=== PATIENT | male | born 1930 | race Caucasian/White ===

== ENCOUNTER 2016-07-12 13:44 | Inpatient (IN) | payer MEDICARE, OTHER ==
--- NOTE | ~2016-07-12 | DS ---
Discharge Summary [facility] [address] [facility] [place]. [address] NAME: STEFFI ARGUETA : 32 STATUS : DIS IN PAT#: [id number] AGE: 85 ADM/REG DATE : 07/12/16 MR#: [id number] REPORT SERV DATE: 07/18/16 DICTATED BY: CARIDAD PHILLIPS DATE: 07/17/16 REPORT STATUS : Draft TRANSCRIBED BY: MODL DATE: 07/17/16 ADMISSION DATE: 07/12/2016 DISCHARGE DATE: 07/17/2016 The patient is an 85-year-old male with a history of hypertension, hyperlipidemia, CVA, who presented to the hospital with a complaint of fever, weakness, dysuria, and cough for three days. For further details please refer to H and P dictated by Dr. Alyce Moy on 07/13/2016. HOSPITAL COURSE: Upon presentation to the hospital the patient was admitted under Hospitalist Service due to the concern of aspiration pneumonia. The patient was placed n.p.o. and a swallow evaluation was done. Pending swallow evaluation the patient was empirically started on IV antibiotics for management of pneumonia. The patient did get a swallow eval which was positive for aspiration. The patient was evaluated by Speech and Swallow, the study was positive for aspiration prompting a modified barium swallow. Status post modified barium swallow eval recommendations were for the patient to be placed on soft mechanical diet. For his pneumonia it was most likely consistent with hospital-acquired aspiration pneumonia. The patient was managed on IV antibiotics with gradual improvement in his symptoms. The patient progressively improved during his hospital course. Given his requirement of oxygen on presentation the patient was evaluated for home O2 requirement; however, the patient did meet criteria for home O2. He has remained hemodynamically stable with resolution of his fever. The patient is now hemodynamically stable. His antibiotics will be transitioned to p.o. as the patient is tolerating p.o. mechanical soft diet. Given resolution of symptoms and completion of workup, the patient will be discharged home. Plan has been discussed with the patient, who voices understanding and is agreeable with this plan. DISCHARGE PHYSICAL EXAMINATION: VITAL SIGNS: Blood pressure 136/75, pulse of 68, respirations 17, and O2 saturation 95% on 3 L nasal cannula. GENERAL: The patient lying in bed, in no acute distress. Speaking in full sentences. HEENT: Normocephalic and atraumatic. Extraocular motors intact. Oral mucosa is moist. Anicteric sclerae. NECK: Trachea midline and symmetric. No JVD noted. No thyromegaly present. No lymphadenopathy palpated. CHEST: Nontender to palpation. CARDIOVASCULAR: Regular rate and rhythm. S1, S2. No murmurs, rubs, or gallops. LUNGS: Clear to auscultation bilaterally. The patient with normal breath sounds. ABDOMEN: Positive bowel sounds. Nontender. Nondistended. EXTREMITIES: No cyanosis, no clubbing, no edema. DISCHARGE MEDICATIONS: 1. Amlodipine 10 mg p.o. daily. 2. Aspirin 325 mg p.o. daily. 3. Atorvastatin 20 mg p.o. at bedtime. 4. Prozac 30 mg p.o. daily. 5. Singulair 10 mg p.o. daily. Discharge Summary [address] [address] NAME: STEFFI ARGUETA : 32 STATUS : DIS IN PAT#: [id number] AGE: 85 ADM/REG DATE : 07/12/16 MR#: [id number] REPORT SERV DATE: 07/18/16 DICTATED BY: CARIDAD PHILLIPS DATE: 07/17/16 REPORT STATUS : Draft TRANSCRIBED BY: KO DATE: 07/17/16 6. Omeprazole 20 mg p.o. daily. IMAGING AND PROCEDURES: 1. Swallow study performed on 07/15/2016. 2. Chest x-ray PA and lateral performed on 07/12/2016. DISCHARGE DIAGNOSES: 1. Hospital-acquired aspiration pneumonia. 2. Aspiration. 3. Hypertension. 4. Acute kidney injury. 5. Hyperlipidemia. 6. History of cerebrovascular accident. DISPOSITION: The patient will be discharged to home to follow up with primary care physician in seven days. ACTIVITY: As tolerated. DIET: Mechanical soft. Greater than 30 minutes were spent coordinating discharge, dictation of note, medication reconciliation, writing prescriptions. NEHEMIAS/KO Caridad Phillips MD / [id number] CC: MD Angelo De La O M.D.
--- NOTE | ~2016-07-12 | HP ---
History And Physical [facility] [address] [facility] [place]. [address] NAME: STEFFI ARGUETA : 32 STATUS : ADM IN [facility]#: [id number] AGE: 85 ADM/REG DATE : 07/12/16 MR#: [id number] REPORT SERV DATE: 07/13/16 DICTATED BY: ALYCE COPELAND DATE: 07/12/16 REPORT STATUS : Draft TRANSCRIBED BY: MODNikia DATE: 07/12/16 DATE OF ADMISSION: 07/12/2016 CHIEF COMPLAINT: Fever, weak, dysuria, and mild cough for two to three days. This is a very pleasant 85-year-old, patient of Dr. Ramos, his primary care provider. He has a history of CVA that on 2016 with mild dysphagia after the stroke. The patient underwent after he took a modified diet until two weeks ago when at [facility], where he was undergoing outpatient rehab, underwent another speech and swallow eval and he has been cleared for a regular diet and liquids. No prior history of pneumonia. He also has a history of TIA, history of GERD, history of hypertension, depression on SSRI, obstructive sleep apnea on oxygen at night, very hard of hearing. Otherwise, very healthy, presenting today to [facility] from Dr. Ramos's office with possible pneumonia. It is important to note that the patient last week had intensive PT at the CT scan as an outpatient and for two to three days he started to feel weak with fever, chills, and rigors, low-grade temperatures especially at night, minimally cough, but no really dysphagia, no nausea or vomiting. He has also being complaining of increased urinary frequency or urgency, but he has not had any significant cough or sputum production. No increasing shortness of breath. No nausea or vomiting. No chest pain. No diarrhea. No abdominal pain. He has not had any recent hospitalization or sick contacts. He went today to Dr. Ramos's office and he has been evaluated by Eduardo Winter, nurse practitioner at Dr. Ramos's office, performed chest x-ray, portable, in Dr. Ramos's office and there was a left lower lobe infiltrate visible on the chest x-ray. As a result, the patient has been sent to [facility] for further evaluation and treatment. The patient again denied any chest pain or increasing shortness of breath. No PND or orthopnea. No palpitation. He is complaining of increased urinary frequency or urgency, rigor, chills. No nausea or vomiting. No abdominal pain. No diarrhea or constipation. No other complaints. PAST MEDICAL HISTORY: Significant for stroke in 2017, hypertension, GERD, depression, history of obstructive sleep apnea, on oxygen at night, history of TIA, hard of hearing. PAST SURGICAL HISTORY: None. SOCIAL HISTORY: Denies tobacco, alcohol, or IV drugs. ALLERGIES: THE PATIENT SAYS HE DOES NOT HAVE ANY DRUG ALLERGIES. HOME MEDICATIONS: Include amlodipine, losartan, atorvastatin, Singulair, aspirin, Prilosec, vitamin D, and Prozac. FAMILY HISTORY: Significant for brain aneurysm rupture. REVIEW OF SYSTEMS: A 14-point review of systems has been obtained and pertinent positive has been listed into the history of present illness. Otherwise, negative except those underlying above. OBJECTIVE: VITAL SIGNS: T-max is 100.2, blood pressure 130/74, heart rate 91, respiratory History And Physical [address] [address] NAME: STEFFI ARGUETA : 32 STATUS : ADM IN [facility]#: [id number] AGE: 85 ADM/REG DATE : 07/12/16 MR#: [id number] REPORT SERV DATE: 07/13/16 DICTATED BY: ALYCE COPELAND DATE: 07/12/16 REPORT STATUS : Draft TRANSCRIBED BY: KO DATE: 07/12/16 rate 16, saturating between 89 and 94% on room air. GENERAL: He is a very pleasant, hard of hearing, and very weak gentleman in no acute distress. He is alert and oriented x3. He is nonfocal. He follows all his commands appropriately. He is weak, but nonfocal. HEENT: Show pupils equal, round, reactive to light. Very dry mucous membranes. Normocephalic, atraumatic. No JVD. No lymphadenopathy. No thyromegaly appreciated. CHEST: Eval shows bilateral air entry. Decreased breath sounds bibasilarly. No wheezing. No crackles or rhonchi appreciated. CARDIOVASCULAR: He is regular rate and rhythm. Slightly tachycardic. S1, S2 positive. No S3, no S4. No murmur, rubs, or gallops appreciated. ABDOMEN: Soft, positive bowel sounds. Nontender. No guarding. No rebound. EXTREMITIES: No clubbing, cyanosis, or edema. NEUROLOGY: The patient is alert and oriented x3. Nonfocal. He follows all his commands appropriately. He is very hard of hearing. Speech is not dysarthric. Extraocular movements are intact. Sensory is intact. LABS: Currently labs are pending. ASSESSMENT AND PLAN: This is an 85-year-old gentleman: 1. With probable aspiration pneumonia. 2. Possible urinary tract infection. 3. History of hypertension. 4. History of stroke with prior history of dysphagia. 5. History of gastroesophageal reflux disease. 6. Depression. 7. History of hyperlipidemia. 8. Hearing impairment. 9. Obstructive sleep apnea, on oxygen at home. PLAN: 1. For possible aspiration pneumonia, we are going to keep him n.p.o. for right now. Provide IV hydration. We will get a speech and swallow eval and treat. We are going to check the labs, panculture. Check a procalcitonin level. Repeat a chest x-ray. Place him on antibiotics with Zosyn and Levaquin. Blood culture. Check a urine Legionella, urine Pneumococcal antigen and hydrate him vigorously today and repeat a chest x-ray, PA and lateral in the morning. 2. Possible urinary tract infection. We will check UA, urine cultures as well place him on antibiotics. 3. History of CVA with prior dysphagia. We are going to place the patient on aspirin. 4. History of hypertension. We are going to continue his home medication. Provide p.r.n. hydralazine as needed. 5. Depression. Continue his home medication. 6. Hyperlipidemia. We will continue his home medication. 7. Obstructive sleep apnea, on oxygen at home. We will continue his home medication. We are going to provide reasonable pain and nausea control as well as gastrointestinal and deep venous thrombosis prophylaxis. That has been discussed extensively with the patient and family. All the questions have been answered in full. Further workup and History And Physical [address] [place]. [address] NAME: STEFFI ARGUETA : 32 STATUS : ADM IN [facility]#: [id number] AGE: 85 ADM/REG DATE : 07/12/16 MR#: [id number] REPORT SERV DATE: 07/13/16 DICTATED BY: ALYCE COPELAND DATE: 07/12/16 REPORT STATUS : Draft TRANSCRIBED BY: MODL DATE: 07/12/16 recommendation pending above. It is worthwhile to note that the patient is going to be followed up by Dr. Rosa M Bach. CF/KO Alyce Copeland M.D. / [id number] CC: MD Angelo Moreira M.D.
[~2016-07-12 13:44] MED LIST: D 5000 PO; MCZ25 PO; MOTRIN IB200 MG PO; P20 PO; PRILOSEC OTC20 MG PO; PROZ10 PO; SINGULAIR1 PO; V5 PO; ZOFRAN ODT4 MG PO
[2016-07-12] MEDS ORDERED: NORV10 PO (14:50)
[2016-07-12] MEDS ORDERED: COZ25 PO (14:51)
[2016-07-12] MEDS ORDERED: LIPITOR20 PO (14:52)
[2016-07-12] MEDS ORDERED: PROZAC PO (14:55)
[2016-07-12] MEDS ORDERED: PROZ10 PO (14:55)
[2016-07-12] MEDS ORDERED: ASAEC PO (14:56)
[2016-07-12] MEDS ORDERED: D 5000 PO (14:58)
[2016-07-12] MEDS ORDERED: SINGULAIR1 PO (14:58)
[2016-07-12] MEDS ORDERED: PRILOSEC OTC20 MG PO (14:59)
[2016-07-12 16:05] LABS: BASOPHILS 0.2 %; BASOPHILS ABSOLUTE 0.02 10/3/uL (0.0-0.16); EOSINOPHILS 0.1 %; EOSINOPHILS ABSOLUTE 0.01 10/3/uL (0.0-0.53); HEMATOCRIT 37.2 % (40.0-51.0); HEMOGLOBIN 12.6 g/dL (13.6-17.8); IMMATURE GRANULOCYTES 0.2 %; IMMATURE GRANULOCYTES ABSOLUTE 0.03 10/3/uL (0.0-0.11); LYMPHOCYTES ABSOLUTE 1.62 10/3/uL (0.67-4.30); MEAN CORPUS HGB CONC 33.9 g/dL (32.0-36.0); MEAN CORPUSCULAR HEMOGLOB 31.8 pg (26.0-34.0); MEAN CORPUSCULAR VOLUME 93.9 fL (80-100); MEAN PLATELET VOLUME 9.7 fL (9.2-13.0); MONOCYTES 11.4 %; MONOCYTES ABSOLUTE 1.42 10/3/uL (0.21-1.20); NEUTROPHILS 75.1 %; NEUTROPHILS ABSOLUTE 9.36 10/3/uL (2.02-8.40); PLATELET COUNT 209 10/3/uL (150-400); RBC DISTRIBUTION WIDTH 13.6 % (12.0-16.0); RED CELL COUNT 3.96 10/6/uL (4.7-6.1); WHITE BLOOD CELLS 12.5 10/3/uL (4.5-10.5)
[2016-07-12 16:08] LABS: MANUAL DIFF NO %
[2016-07-12 16:15] LABS: INTERNATIONAL NORMAL RATI 1.1 UNITS (-); PARTIAL THROMBO TIME 29.5 SEC (22.5-37.2)
[2016-07-12 16:27] LABS: B NATRIURETIC PEPTIDE (BNP) 59.7 PG/ML (< 100.0)
[2016-07-12 16:30] LABS: A/G RATIO 0.8 (0.7-1.9); ALBUMIN 3.5 G/DL (3.5-5.0); ALKALINE PHOSPHATASE 104 U/L (45-117); BUN (BLOOD UREA NITROGEN) 20 MG/DL (6-23); CALCIUM, SERUM 9.3 MG/DL (8.5-10.4); CHLORIDE, SERUM 102 MMOL/L (96-112); CO2 (CARBON DIOXIDE) 29 MMOL/L (24-34); CPK 85 U/L (0-200); CREATININE 1.42 MG/DL (0.70-1.30); FREE T4 1.28 NG/DL (0.76-1.46); GFR AFRICAN AMERICAN 53 ML/MIN (>=60); GFR NON AFRICAN AMERICAN 45 ML/MIN (>=60); GLOBULIN 4.5 G/DL (2.5-4.1); GLUCOSE, SERUM 108 MG/DL (60-99); PHOSPHORUS, SERUM 2.9 MG/DL (2.5-4.5); POTASSIUM, SERUM 4.2 MMOL/L (3.5-5.3); SGOT(AST) 15 U/L (5-40); SGPT(ALT) 19 U/L (5-65); SODIUM, SERUM 136 MMOL/L (135-148); TOTAL BILIRUBIN 0.7 MG/DL (0-1.2); TROPONIN I <0.02 NG/ML (<0.05)
[2016-07-12 20:28] LABS: PROCALCITONIN 0.14 ng/mL (<0.5)
[2016-07-12 21:45] LABS: WBC (NOT ORDERED) (RFLEX) 0 (0-5)
[2016-07-12 22:04] LABS: ASCORBIC ACID (UR NOT ORDER) NEG (NEG); BILIRUBIN, URINE NEGATIVE (NEG); KETONE, URINE TRACE MG/DL (NEG); LEUKOCYTE ESTERASE(NOT OR NEG (NEG)
[2016-07-12 23:45] LABS: CPK 91 U/L (0-200); TROPONIN I <0.02 NG/ML (<0.05)
[2016-07-12 23:48] LABS: CK-MB < 0.5 NG/ML
[2016-07-13 07:49] LABS: BASOPHILS 0.2 %; BASOPHILS ABSOLUTE 0.02 10/3/uL (0.0-0.16); EOSINOPHILS 0.1 %; EOSINOPHILS ABSOLUTE 0.01 10/3/uL (0.0-0.53); HEMATOCRIT 37.1 % (40.0-51.0); HEMOGLOBIN 12.6 g/dL (13.6-17.8); IMMATURE GRANULOCYTES 0.2 %; IMMATURE GRANULOCYTES ABSOLUTE 0.02 10/3/uL (0.0-0.11); LYMPHOCYTES 14.1 %; LYMPHOCYTES ABSOLUTE 1.29 10/3/uL (0.67-4.30); MANUAL DIFF NO %; MEAN CORPUSCULAR HEMOGLOB 32.1 pg (26.0-34.0); MEAN CORPUSCULAR VOLUME 94.6 fL (80-100); MEAN PLATELET VOLUME 9.4 fL (9.2-13.0); MONOCYTES 14.9 %; MONOCYTES ABSOLUTE 1.37 10/3/uL (0.21-1.20); NEUTROPHILS 70.5 %; NEUTROPHILS ABSOLUTE 6.46 10/3/uL (2.02-8.40); PLATELET COUNT 187 10/3/uL (150-400); RBC DISTRIBUTION WIDTH 13.4 % (12.0-16.0); RED CELL COUNT 3.92 10/6/uL (4.7-6.1); WHITE BLOOD CELLS 9.2 10/3/uL (4.5-10.5)
[2016-07-13 07:50] LABS: A/G RATIO 0.7 (0.7-1.9); ALBUMIN 2.9 G/DL (3.5-5.0); ALKALINE PHOSPHATASE 96 U/L (45-117); CALCIUM, SERUM 8.9 MG/DL (8.5-10.4); CHLORIDE, SERUM 104 MMOL/L (96-112); CREATININE 1.23 MG/DL (0.70-1.30); GFR AFRICAN AMERICAN 63 ML/MIN (>=60); GFR NON AFRICAN AMERICAN 54 ML/MIN (>=60); GLOBULIN 4.3 G/DL (2.5-4.1); GLUCOSE, SERUM 103 MG/DL (60-99); SGOT(AST) 17 U/L (5-40); SGPT(ALT) 16 U/L (5-65); SODIUM, SERUM 138 MMOL/L (135-148); TOTAL BILIRUBIN 0.6 MG/DL (0-1.2); TOTAL PROTEIN 7.2 G/DL (6.0-8.5); TROPONIN I <0.02 NG/ML (<0.05)
[2016-07-13 07:51] LABS: BUN (BLOOD UREA NITROGEN) 15 MG/DL (6-23); CK-MB 0.7 NG/ML; CO2 (CARBON DIOXIDE) 23 MMOL/L (24-34); CPK 140 U/L (0-200)
[2016-07-13 13:09] LABS: GLYCOHEMOGLOBIN (HbA1c) 5.6 % (4.7-6.1)
[2016-07-13 16:25] LABS: TROPONIN I 0.03 NG/ML (<0.05)
[2016-07-13 16:27] LABS: CK-MB 0.9 NG/ML; CPK 171 U/L (0-200)
[2016-07-14 06:04] LABS: BASOPHILS 0.2 %; BASOPHILS ABSOLUTE 0.02 10/3/uL (0.0-0.16); EOSINOPHILS 0.8 %; EOSINOPHILS ABSOLUTE 0.07 10/3/uL (0.0-0.53); HEMATOCRIT 35.2 % (40.0-51.0); HEMOGLOBIN 11.8 g/dL (13.6-17.8); IMMATURE GRANULOCYTES 0.3 %; IMMATURE GRANULOCYTES ABSOLUTE 0.03 10/3/uL (0.0-0.11); LYMPHOCYTES 18.9 %; LYMPHOCYTES ABSOLUTE 1.68 10/3/uL (0.67-4.30); MEAN CORPUS HGB CONC 33.5 g/dL (32.0-36.0); MEAN CORPUSCULAR HEMOGLOB 31.3 pg (26.0-34.0); MEAN CORPUSCULAR VOLUME 93.4 fL (80-100); MEAN PLATELET VOLUME 9.5 fL (9.2-13.0); MONOCYTES 17.3 %; MONOCYTES ABSOLUTE 1.54 10/3/uL (0.21-1.20); NEUTROPHILS 62.5 %; NEUTROPHILS ABSOLUTE 5.56 10/3/uL (2.02-8.40); PLATELET COUNT 213 10/3/uL (150-400); RBC DISTRIBUTION WIDTH 13.4 % (12.0-16.0); RED CELL COUNT 3.77 10/6/uL (4.7-6.1); WHITE BLOOD CELLS 8.9 10/3/uL (4.5-10.5)
[2016-07-14 06:06] LABS: MANUAL DIFF NO %
[2016-07-14 06:07] LABS: A/G RATIO 0.7 (0.7-1.9); ALBUMIN 2.7 G/DL (3.5-5.0); BUN (BLOOD UREA NITROGEN) 12 MG/DL (6-23); CALCIUM, SERUM 8.5 MG/DL (8.5-10.4); CHLORIDE, SERUM 105 MMOL/L (96-112); CO2 (CARBON DIOXIDE) 23 MMOL/L (24-34); CREATININE 1.08 MG/DL (0.70-1.30); GFR AFRICAN AMERICAN 73 ML/MIN (>=60); GFR NON AFRICAN AMERICAN 63 ML/MIN (>=60); GLUCOSE, SERUM 99 MG/DL (60-99); POTASSIUM, SERUM 3.9 MMOL/L (3.5-5.3); SGOT(AST) 23 U/L (5-40); SGPT(ALT) 16 U/L (5-65); SODIUM, SERUM 138 MMOL/L (135-148); TOTAL BILIRUBIN 0.5 MG/DL (0-1.2); TOTAL PROTEIN 6.7 G/DL (6.0-8.5)
[2016-07-14 06:08] LABS: ALKALINE PHOSPHATASE 81 U/L (45-117)
[2016-07-15 06:19] LABS: BASOPHILS 0.3 %; BASOPHILS ABSOLUTE 0.02 10/3/uL (0.0-0.16); EOSINOPHILS 2.1 %; EOSINOPHILS ABSOLUTE 0.16 10/3/uL (0.0-0.53); HEMATOCRIT 34.9 % (40.0-51.0); HEMOGLOBIN 12.1 g/dL (13.6-17.8); IMMATURE GRANULOCYTES 0.3 %; IMMATURE GRANULOCYTES ABSOLUTE 0.02 10/3/uL (0.0-0.11); LYMPHOCYTES 24.8 %; LYMPHOCYTES ABSOLUTE 1.92 10/3/uL (0.67-4.30); MEAN CORPUS HGB CONC 34.7 g/dL (32.0-36.0); MEAN CORPUSCULAR HEMOGLOB 32.1 pg (26.0-34.0); MEAN CORPUSCULAR VOLUME 92.6 fL (80-100); MEAN PLATELET VOLUME 9.4 fL (9.2-13.0); MONOCYTES 11.9 %; MONOCYTES ABSOLUTE 0.92 10/3/uL (0.21-1.20); NEUTROPHILS 60.6 %; NEUTROPHILS ABSOLUTE 4.71 10/3/uL (2.02-8.40); PLATELET COUNT 220 10/3/uL (150-400); RBC DISTRIBUTION WIDTH 13.5 % (12.0-16.0); RED CELL COUNT 3.77 10/6/uL (4.7-6.1); WHITE BLOOD CELLS 7.8 10/3/uL (4.5-10.5)
[2016-07-15 06:25] LABS: MANUAL DIFF NO %
[2016-07-15 06:35] LABS: A/G RATIO 0.6 (0.7-1.9); ALBUMIN 2.4 G/DL (3.5-5.0); ALKALINE PHOSPHATASE 77 U/L (45-117); BUN (BLOOD UREA NITROGEN) 9 MG/DL (6-23); CALCIUM, SERUM 8.5 MG/DL (8.5-10.4); CHLORIDE, SERUM 108 MMOL/L (96-112); CO2 (CARBON DIOXIDE) 24 MMOL/L (24-34); CREATININE 1.05 MG/DL (0.70-1.30); GFR AFRICAN AMERICAN 76 ML/MIN (>=60); GFR NON AFRICAN AMERICAN 65 ML/MIN (>=60); GLOBULIN 4.3 G/DL (2.5-4.1); GLUCOSE, SERUM 93 MG/DL (60-99); SGOT(AST) 22 U/L (5-40); SGPT(ALT) 15 U/L (5-65); SODIUM, SERUM 140 MMOL/L (135-148); TOTAL BILIRUBIN 0.4 MG/DL (0-1.2); TOTAL PROTEIN 6.7 G/DL (6.0-8.5)
[2016-07-16 07:04] LABS: BASOPHILS 0.3 %; BASOPHILS ABSOLUTE 0.02 10/3/uL (0.0-0.16); EOSINOPHILS 2.5 %; HEMATOCRIT 35.3 % (40.0-51.0); HEMOGLOBIN 12.1 g/dL (13.6-17.8); IMMATURE GRANULOCYTES 0.4 %; IMMATURE GRANULOCYTES ABSOLUTE 0.03 10/3/uL (0.0-0.11); LYMPHOCYTES 22.1 %; LYMPHOCYTES ABSOLUTE 1.76 10/3/uL (0.67-4.30); MANUAL DIFF NO %; MEAN CORPUS HGB CONC 34.3 g/dL (32.0-36.0); MEAN CORPUSCULAR HEMOGLOB 31.3 pg (26.0-34.0); MEAN CORPUSCULAR VOLUME 91.2 fL (80-100); MONOCYTES 12.4 %; MONOCYTES ABSOLUTE 0.99 10/3/uL (0.21-1.20); NEUTROPHILS 62.3 %; NEUTROPHILS ABSOLUTE 4.97 10/3/uL (2.02-8.40); PLATELET COUNT 252 10/3/uL (150-400); RBC DISTRIBUTION WIDTH 13.6 % (12.0-16.0); RED CELL COUNT 3.87 10/6/uL (4.7-6.1)
[2016-07-16 07:14] LABS: A/G RATIO 0.6 (0.7-1.9); ALBUMIN 2.4 G/DL (3.5-5.0); ALKALINE PHOSPHATASE 79 U/L (45-117); BUN (BLOOD UREA NITROGEN) 8 MG/DL (6-23); CALCIUM, SERUM 8.4 MG/DL (8.5-10.4); CHLORIDE, SERUM 107 MMOL/L (96-112); CO2 (CARBON DIOXIDE) 26 MMOL/L (24-34); CREATININE 0.99 MG/DL (0.70-1.30); GFR AFRICAN AMERICAN 81 ML/MIN (>=60); GFR NON AFRICAN AMERICAN 70 ML/MIN (>=60); GLOBULIN 4.2 G/DL (2.5-4.1); GLUCOSE, SERUM 92 MG/DL (60-99); SGPT(ALT) 17 U/L (5-65); SODIUM, SERUM 140 MMOL/L (135-148); TOTAL BILIRUBIN 0.5 MG/DL (0-1.2); TOTAL PROTEIN 6.6 G/DL (6.0-8.5)
[2016-07-16 07:15] LABS: POTASSIUM, SERUM 4.3 MMOL/L (3.5-5.3); SGOT(AST) 25 U/L (5-40)
[2016-07-17 06:39] LABS: BASOPHILS 0.4 %; BASOPHILS ABSOLUTE 0.03 10/3/uL (0.0-0.16); EOSINOPHILS ABSOLUTE 0.25 10/3/uL (0.0-0.53); HEMATOCRIT 34.9 % (40.0-51.0); HEMOGLOBIN 11.9 g/dL (13.6-17.8); IMMATURE GRANULOCYTES 0.4 %; IMMATURE GRANULOCYTES ABSOLUTE 0.03 10/3/uL (0.0-0.11); LYMPHOCYTES 19.5 %; LYMPHOCYTES ABSOLUTE 1.61 10/3/uL (0.67-4.30); MEAN CORPUS HGB CONC 34.1 g/dL (32.0-36.0); MEAN CORPUSCULAR HEMOGLOB 31.7 pg (26.0-34.0); MEAN CORPUSCULAR VOLUME 93.1 fL (80-100); MONOCYTES 10.1 %; MONOCYTES ABSOLUTE 0.83 10/3/uL (0.21-1.20); NEUTROPHILS 66.6 %; PLATELET COUNT 289 10/3/uL (150-400); RBC DISTRIBUTION WIDTH 13.5 % (12.0-16.0); RED CELL COUNT 3.75 10/6/uL (4.7-6.1); WHITE BLOOD CELLS 8.3 10/3/uL (4.5-10.5)
[2016-07-17 06:41] LABS: MANUAL DIFF NO %
[2016-07-17 06:47] LABS: A/G RATIO 0.6 (0.7-1.9); ALBUMIN 2.5 G/DL (3.5-5.0); ALKALINE PHOSPHATASE 81 U/L (45-117); BUN (BLOOD UREA NITROGEN) 7 MG/DL (6-23); CALCIUM, SERUM 8.9 MG/DL (8.5-10.4); CHLORIDE, SERUM 109 MMOL/L (96-112); CO2 (CARBON DIOXIDE) 24 MMOL/L (24-34); GFR AFRICAN AMERICAN 80 ML/MIN (>=60); GFR NON AFRICAN AMERICAN 69 ML/MIN (>=60); GLOBULIN 4.1 G/DL (2.5-4.1); GLUCOSE, SERUM 102 MG/DL (60-99); POTASSIUM, SERUM 4.3 MMOL/L (3.5-5.3); SGPT(ALT) 20 U/L (5-65); SODIUM, SERUM 141 MMOL/L (135-148); TOTAL BILIRUBIN 0.3 MG/DL (0-1.2); TOTAL PROTEIN 6.6 G/DL (6.0-8.5)
[2016-07-17 06:48] LABS: SGOT(AST) 25 U/L (5-40)
[2016-07-17] MEDS ORDERED: LEVAQUIN750 MG PO (10:58)
== END 2016-07-17 12:42 | disposition home or self-care (01) | DRG 682 ==
LOC: 5SO 13:44
PROVIDERS: Hospitalist; Internal Medicine
DX: N17.9 Acute kidney failure, unspecified (principal); J69.0 Pneumonitis due to inhalation of food and vomit; J18.9 Pneumonia, unspecified organism; N39.0 Urinary tract infection, site not specified; I69.391 Dysphagia following cerebral infarction; R13.10 Dysphagia, unspecified; K21.9 Gastro-esophageal reflux disease without esophagitis; F32.9 Major depressive disorder, single episode, unspecified; E78.5 Hyperlipidemia, unspecified; G47.33 Obstructive sleep apnea (adult) (pediatric); Z79.82 Long term (current) use of aspirin; Z79.899 Other long term (current) drug therapy; I12.9 Hypertensive chronic kidney disease with stage 1 through stage 4 chronic kidney disease, or unspecified chronic kidney disease; N18.3 Chronic kidney disease, stage 3 (moderate)
CPT/HCPCS: 71010; 71020; 74230; 80053; 81001; 82550; 82553; 83036; 83605; 83615; 83735; 83880; 84100; 84145; 84439; 84443; 84484; 85025; 85610; 85730; 87040; 87449; 92610-GN; 92611-GN; 93005; 94640; A9270-GY; G8996-CJ-GN; G8996-CK-GN; G8997-CJ-GN; G8997-CK-GN; G8998-CJ-GN; G8998-CK-GN; J1956; J2543